=== PATIENT | female | born 1975 | race Caucasian/White ===

== ENCOUNTER 2016-10-26 21:59 | Emergency (ER) | payer OTHER ==
[2016-10-26 22:35] LABS: ABSOLUTE BASOPHILS # (AUTO) 0.1 10^3/uL (0.0-0.2); ABSOLUTE EOSINOPHILS # (AUTO) 0.3 10^3/uL (0.0-0.6); ABSOLUTE LYMPHOCYTES (AUTO) 3.1 10^3/uL (0.5-4.7); ABSOLUTE MONOCYTES (AUTO) 0.8 10^3/uL (0.1-1.4); ABSOLUTE NEUT (AUTO) 5.6 10^3/uL (1.7-8.2); BASOPHILS % (AUTO) 0.8 % (0-2); EOSINOPHILS % (AUTO) 2.6 % (0-6); HEMATOCRIT 42.3 % (36.0-47.0); HEMOGLOBIN 14.2 g/dL (12.0-15.5); HGB HCT DIFFERENCE 0.3; LYMPHOCYTES % (AUTO) 31.5 % (13-45); MEAN CORPUSCULAR HEMOGLOBIN 29.8 pg (27.0-33.4); MEAN CORPUSCULAR HGB CONC 33.6 g/dL (32.0-36.0); MEAN CORPUSCULAR VOLUME 89 fl (80-97); MONOCYTES % (AUTO) 7.8 % (3-13); RED BLOOD COUNT 4.77 10^6/uL (3.72-5.28); RED CELL DISTRIBUTION WIDTH 14.1 % (11.5-14.0); SEGMENTED NEUTROPHILS % (AUTO) 57.3 % (42-78); WHITE BLOOD COUNT 9.8 10^3/uL (4.0-10.5)
[2016-10-26 22:38] LABS: PROTHROMBIN TIME 12.4 SEC (11.4-15.4)
[2016-10-26 22:39] LABS: PARTIAL THROMBOPLASTIN TIME 26.5 SEC (23.5-35.8)
--- NOTE | 2016-10-26 22:39 | ER Document Report ---
ED General - General Chief Complaint: Headache Stated Complaint: POSSIBLE STROKE Notes: Patient is a 41-year-old female who presents with complaint of onset of headache and tingling sensations in her face and a little bit of slurred speech. She said she said the symptoms in the past. The worst episode of the system she ever had was in 2014. This was up in [place]. At that time they initially suspected a stroke. They did an MRI of her head. She did bring her MRI CD with her. The MRI was read as having multiple regions of T2 hyperdensity and signal abnormality in 2 left-sided lesions. Differential diagnosis at that time on the radiologist read was acute infarcts within left parietal and left temporal lobes with possible remote infarct in the right paraventricular white matter. Differential diagnosis also include possibility of acute demyelinating foci and demyelinating disease. Patient says her symptoms have now resolved exception of still having slight headache. She says she gets headaches frequently this is not atypical for her. She scissors speech is back to normal. Patient says she frequently gets episodes of random numbness and tingling. She sometimes also has episodes of recurrent headaches and slightly slurred speech. Patient says that in [place] seem to be related to living in a house with mold. She recently start renting a house down here which has mold in her symptoms have been occurring much more frequent. She was seen 5 different doctors in [place]. For them told her that she had early signs of MS. One told her that he thought it was a stroke. Patient herself thinks it is probably MS. She's not followed up or had repeat MRIs. She does have a primary care doctor in the area. She's not seen neurologist since she left [place]. She denies any focal weakness or numbness today in any of her extremity. She denies any difficulty walking or ambulating. TRAVEL OUTSIDE OF THE [place] IN LAST 30 DAYS: No - Related Data Allergies/Adverse Reactions: codeine Allergy (Verified 07/11/16 21:11) Penicillins Allergy (Verified 07/11/16 21:11) Past Medical History - Social History Smoking Status: Current Every Day Smoker Frequency of alcohol use: None Drug Abuse: None Family History: Other - Mother age 50 unknown cause Patient has suicidal ideation: No Patient has homicidal ideation: No Renal/ Medical History: Denies: Hx Peritoneal Dialysis Past Surgical History: Reports: Hx Section, Hx Tonsillectomy, Hx Tubal Ligation Review of Systems - Review of Systems Notes: My Normal Review Basic REVIEW OF SYSTEMS: CONSTITUTIONAL : Denies fever, chills, or sweats. Denies recent illness. EENT: Denies eye, ear, throat, or mouth pain or symptoms. Denies nasal or sinus congestion. CARDIOVASCULAR: Denies chest pain. RESPIRATORY: Denies cough, cold, or chest congestion. Denies shortness of breath, difficulty breathing, or wheezing. GASTROINTESTINAL: Denies abdominal pain. Denies nausea, vomiting, or diarrhea. Denies constipation. Last BM: MUSCULOSKELETAL: Denies neck or back pain or joint pain or swelling. SKIN: Denies rash or skin lesions. NEUROLOGICAL: Denies altered mental status or loss of consciousness. Has a headache. Denies weakness or paralysis or loss of use of either side. Had some difficulty speaking. Denies sensory or motor loss. ALL OTHER SYSTEMS REVIEWED AND NEGATIVE. Physical Exam - Vital signs Vitals: Temp Pulse BP Pulse Ox 98.2 F 80 137/78 H 97 10/26/16 22:07 10/26/16 22:07 10/26/16 22:07 10/26/16 22:07 - Notes Notes: General Appearance: Well nourished, alert, cooperative, no acute distress, no obvious discomfort. Well-appearing. Vitals: reviewed, See vital signs table. Head: no swelling or tenderness to the head Eyes: PERRL, EOMI, Conjuctiva clear Mouth: No decreasd moisture Neck: Supple, no neck tenderness, Lungs: No wheezing, No rales, No rhonci, No accessory muscle use, good air exchange bilaterally. Heart: Normal rate, Regular rythm, No murmur, no rub Extremities: strength 5/5 in all extremities, good pulses in all extremities, no swelling or tenderness in the extremities, no edema. Skin: warm, dry, appropriate color, no rash Neuro: speech clear, oriented x 3, normal affect, responds appropriately to questions. Cranial nerves II through XII are intact. Distal sensation intact. Patient moves all extremities without difficulty. Normal gait. Normal Romberg. Her current NIH stroke scale is 0. Course - Re-evaluation Re-evalutation: 10/26/16 22:37 I went to go to immediately evaluate the patient because I was told she has strokelike symptoms and the patient has a previous history of stroke. I went to the patient's room and she was in the bathroom. I will see the patient as soon as she gets back to room. - Vital Signs Vital signs: Temp Pulse Resp BP Pulse Ox 98.2 F 80 18 135/77 H 100 10/26/16 22:07 10/26/16 22:07 10/26/16 23:01 10/26/16 23:01 10/26/16 23:01 - Laboratory Result Diagrams: 10/26/16 22:25 10/26/16 22:25 Laboratory results interpreted by me: 10/26/16 10/26/16 22:25 22:25 RDW 14.1 H Glucose 112 H - EKG Interpretation by Me Additional EKG results interpreted by me: 10/26/16 23:16 EKG is reviewed and I will are provided by me. EKG shows a sinus rhythm with rate of [address] segment elevation or depression. No ischemic T wave inversions. [place] interval, QRS duration, QTC intervals are within normal range. No old EKG available for comparison. - Transfer of Care Notes: 10/26/16 23:22 I spoke to the patient length about her symptoms. I informed her that I cannot conclude whether or not this is MS or possible recurrent strokes without admitting her and obtaining MRI. I strongly encourage her to stay in hospital. Patient says she cannot stay in hospital because she has to go home and care for children. I informed her that currently she has no symptoms and looks well and I do not suspect a life-threatening illness; however, I cannot fully guarantee her that she does not have an impending life-threatening episode in the near future without actually knowing exactly what is going on. Patient is understanding of this and still refuses to stay. Patient is awake and alert. She has no neurologic deficits. Her NIH stroke scale is 0. She wishes to be discharged home. I will discharge her home as she requests. She has no focal incision opacity at this time and I cannot hold her against her will. Patient says she'll follow-up with her primary care doctor tomorrow and arrange for an outpatient MRI to compare to the MRI that she had 2015. This should show whether or not she is having increasing lesions in her brain. I strongly encouraged her follow up with a neurologist. I gave her the phone numbers to the 2 local neurologist. Also gave her the number to the neurology clinic in [place]. Patient informed that she is more and welcome to return to ER anytime as we are happy to care for to take care of her to try to continue her workup. Patient demonstrates complete understanding of this. Patient will be discharged home as she requests. Dictation of this chart was performed using voice recognition software; therefore, there may be some unintended grammatical errors. Discharge - Discharge Clinical Impression: Headache Qualifiers: Headache type: unspecified Headache chronicity pattern: episodic headache Intractability: not intractable Qualified Code(s): R51 - Headache Condition: Stable Disposition: HOME, SELF-CARE Additional Instructions: Please consider finding a different home or living situation where there is not mold in the house being that you've noticed that living in moldy conditions exacerbate your symptoms and make them worse. As discussed with you, the exact cause of your symptoms today are not 100% clear. You do have the previous MRI which shows that you have a potential previous stroke versus multiple sclerosis. As discussed with you I do recommend staying in the hospital so that we can continue to monitor you to make sure that your symptoms do not come back or worsen and to also get a repeat MRI. At this time I do not suspect that you have anything immediately life-threatening; however, I cannot be 100% sure without admitting you or performing an MRI as discussed with you. I do understand with your family situation that you're unable to stay tonight. Please feel free to return to the ER any time as we are happy to take care of you any time and continue workup. Please follow very closely with your primary care doctor to arrange for a MRI of your brain. Please follow-up with a neurologist for reevaluation and further workup for recurrence of your symptoms and for further workup of possible multiple sclerosis. I've included the name and numbers of 2 local neurologist on your discharge instructions here. The number to the neurology clinic in [place] is [phone]. This is [facility] neurology. Referrals: CHAU ROSARIO MD [EMERITUS] - Follow up in 3-5 days TARA VEGA MD [ACTIVE STAFF] - Follow up in 3-5 days
[2016-10-26 22:55] LABS: ALANINE AMINOTRANSFERASE 21 U/L (9-52); ALBUMIN 4.1 g/dL (3.5-5.0); ALKALINE PHOSPHATASE 64 U/L (38-126); ANION GAP 9 (5-19); ASPARTATE AMINO TRANSFERASE 16 U/L (14-36); BILIRUBIN,TOTAL 0.7 mg/dL (0.2-1.3); BLOOD UREA NITROGEN 14 mg/dL (7-20); CARBON DIOXIDE 26 mmol/L (22-30); CHLORIDE 106 mmol/L (98-107); CREATINE KINASE 67 U/L (30-135); CREATININE RESULT 0.69 mg/dL (0.52-1.25); GLUCOSE 112 mg/dL (75-110); POTASSIUM 4.1 mmol/L (3.6-5.0); SODIUM 140.7 mmol/L (137-145); TOTAL PROTEIN 6.7 g/dL (6.3-8.2)
[2016-10-26] MEDS ORDERED: KETOROLAC TROMETHAMINE INJ/PF 30 MG/1 ML SDV IM ONE (23:04)
[2016-10-26 23:07] LABS: CREATINE KINASE MB < 0.22 ng/mL (<4.55); TROPONIN I < 0.012 ng/mL
[2016-10-26 23:13] VITALS: BP 135/77
--- NOTE | 2016-10-27 07:56 | EKG REPORT ---
SEVERITY:- OTHERWISE NORMAL ECG - SINUS RHYTHM BORDERLINE RIGHT AXIS DEVIATION : Confirmed by: Iris Fair MD 27-Oct-2016 07:55:32
== END 2016-10-26 23:35 | disposition home or self-care (01) ==
LOC: ER 21:59
DX: R51 Headache (principal); R20.2 Paresthesia of skin; R47.81 Slurred speech; F17.200 Nicotine dependence, unspecified, uncomplicated; Z88.0 Allergy status to penicillin; Z88.6 Allergy status to analgesic agent
CPT/HCPCS: 93005; 99284; 96372; 36415; 82553; 82550; 84703; 85025; 85610; 85730; 80053; 84484; 71010; 70450; 93010; J1885

== ENCOUNTER 2016-10-31 15:25 | Emergency (ER) | payer OTHER ==
--- NOTE | 2016-10-31 15:31 | ER Document Report ---
ED Medical Screen (RME) - General Stated Complaint: STOMACH PAIN Notes: patient is a 41 year old female p/w left rib pain, denies any trauma, injury. worse with inspiration. denies any other associated symptoms LMP: september I have greeted and performed a rapid initial assessment of this patient. A comprehensive ED assessment and evaluation of the patient, analysis of test results and completion of the medical decision making process will be conducted by additional ED providers. TRAVEL OUTSIDE OF THE [place] IN LAST 30 DAYS: No - Related Data Allergies/Adverse Reactions: codeine Allergy (Verified 10/31/16 15:28) Penicillins Allergy (Verified 10/31/16 15:28) Past Medical History Renal/ Medical History: Denies: Hx Peritoneal Dialysis Past Surgical History: Reports: Hx Section, Hx Tonsillectomy, Hx Tubal Ligation - Immunizations Hx Diphtheria, Pertussis, Tetanus Vaccination: Yes
--- NOTE | 2016-10-31 16:31 | ER Document Report ---
ED General - General Chief Complaint: Abdominal Pain Stated Complaint: STOMACH PAIN Time seen by provider: 16:28 Mode of Arrival: Ambulatory Information source: Patient Notes: This is a 41-year-old female with a history of MS, irritable bowel who presents to the emergency room with left-sided abdominal pain. Patient denies fever. TRAVEL OUTSIDE OF THE [place] IN LAST 30 DAYS: No - HPI Onset: Other - Past 2 days Onset/Duration: Gradual Quality of pain: Achy Severity: Mild Pain Level: 1 Associated symptoms: denies: Chills, Nonproductive cough, Productive cough, Fever, Nausea, Vomiting, Shortness of breath Exacerbated by: Denies Relieved by: Denies Similar symptoms previously: No Recently seen / treated by doctor: No - Related Data Allergies/Adverse Reactions: codeine Allergy (Verified 10/31/16 15:28) Penicillins Allergy (Verified 10/31/16 15:28) Past Medical History - General Information source: Patient - Social History Smoking Status: Current Every Day Smoker Cigarette use (# per day): Yes Chew tobacco use (# tins/day): No Frequency of alcohol use: None Drug Abuse: None Lives with: Family Family History: Reviewed & Not Pertinent, Other - Mother age 50 unknown cause Patient has suicidal ideation: No Patient has homicidal ideation: No - Past Medical History Cardiac Medical History: Reports: None Pulmonary Medical History: Reports: None EENT Medical History: Reports: None Neurological Medical History: Reports: None Endocrine Medical History: Reports: None Renal/ Medical History: Reports: None. Denies: Hx Peritoneal Dialysis Malignancy Medical History: Reports: None GI Medical History: Reports: Other - Irritable bowel Musculoskeltal Medical History: Reports None Skin Medical History: Reports None Psychiatric Medical History: Reports: None Traumatic Medical History: Reports: None Infectious Medical History: Reports: None Past Surgical History: Reports: Hx Section, Hx Tonsillectomy, Hx Tubal Ligation - Immunizations Hx Diphtheria, Pertussis, Tetanus Vaccination: Yes Review of Systems - Review of Systems Constitutional: No symptoms reported EENT: No symptoms reported Cardiovascular: No symptoms reported Respiratory: No symptoms reported Gastrointestinal: See HPI Genitourinary: No symptoms reported Female Genitourinary: No symptoms reported Musculoskeletal: No symptoms reported Skin: No symptoms reported Hematologic/Lymphatic: No symptoms reported Neurological/Psychological: No symptoms reported Physical Exam - Vital signs Vitals: Temp Pulse Resp BP Pulse Ox 98.2 F 82 18 122/67 97 10/31/16 15:29 10/31/16 15:29 10/31/16 15:29 10/31/16 15:29 10/31/16 15:29 Notes: Physical exam: GENERAL: 41-year-old female, alert and oriented 3, no acute distress HEAD: Atraumatic, normocephalic. EYES: Pupils equal round and reactive to light, extraocular movements intact, sclera anicteric, conjunctiva are normal. ENT: TMs normal, nares patent, oropharynx clear without exudates. Moist mucous membranes. NECK: Normal range of motion, supple without lymphadenopathy or JVD. LUNGS: Breath sounds clear to auscultation bilaterally and equal. No wheezes rales or rhonchi. HEART: Regular rate and rhythm without murmurs, rubs or gallops. ABDOMEN: Soft, normoactive bowel sounds. No tenderness to palpation. No guarding, no rebound. No masses appreciated. EXTREMITIES: Normal range of motion, no pitting or edema. No clubbing or cyanosis. NEUROLOGICAL: Cranial nerves II through XII grossly intact. Normal speech, normal gait. PSYCH: Normal mood, normal affect. SKIN: Warm, Dry, normal turgor, no rashes or lesions noted. Course - Vital Signs Vital signs: Temp Pulse Resp BP Pulse Ox 98.2 F 82 18 122/67 97 10/31/16 15:29 10/31/16 15:29 10/31/16 15:29 10/31/16 15:29 10/31/16 15:29 - Laboratory Result Diagrams: 10/31/16 16:55 10/31/16 16:55 Laboratory results interpreted by me: 10/31/16 16:55 RDW 14.3 H - Diagnostic Test Radiology reviewed: Image reviewed, Reports reviewed - CT of the abdomen shows no acute intra-abdominal process Discharge - Discharge Clinical Impression: abdominal pain Condition: Stable Disposition: HOME, SELF-CARE Instructions: Abdominal Pain ([facility]) Additional Instructions: Please note: Many disease processes evolve over time and the ER visit offers only a brief assessment. This is why it is important that you: 1. Follow-up with your doctor in the next 48hours to be reevaluated. 2. If unable to see a physician in the next 48 hours, return to the ER for reevaluation. 3. Return to the ER at once if your symptoms worsen or you are unable to tolerate fluids, if the pain becomes localized to the right lower side of the abdomen, or any concerns you are getting worse. When you call your physician's office, tell them you were evaluated in the ER for abdominal pain and the ER physician recommended you seen in the office in the next 24 hours for reevaluation. Bring a copy of today's labs/urine analysis /imaging reports with you when you see your physician. If you are unable to get an appointment with your doctor in this time frame, return to the ER for evaluation. In the meantime, rest, drink plenty of fluids and advance her diet as tolerated. Take the omeprazole as prescribed. Referrals: GABBY GUY PA-C [Primary Care Provider] - 11/02/16
[2016-10-31] MEDS ORDERED: NORMAL SALINE 1000 ML 1,000 ML IV PRN (16:34)
[2016-10-31 17:06] LABS: ABSOLUTE BASOPHILS # (AUTO) 0.1 10^3/uL (0.0-0.2); ABSOLUTE EOSINOPHILS # (AUTO) 0.2 10^3/uL (0.0-0.6); ABSOLUTE LYMPHOCYTES (AUTO) 2.3 10^3/uL (0.5-4.7); ABSOLUTE MONOCYTES (AUTO) 0.7 10^3/uL (0.1-1.4); ABSOLUTE NEUT (AUTO) 5.7 10^3/uL (1.7-8.2); BASOPHILS % (AUTO) 0.9 % (0-2); EOSINOPHILS % (AUTO) 2.1 % (0-6); HEMATOCRIT 42.3 % (36.0-47.0); HEMOGLOBIN 14.1 g/dL (12.0-15.5); LYMPHOCYTES % (AUTO) 25.2 % (13-45); MEAN CORPUSCULAR HEMOGLOBIN 29.6 pg (27.0-33.4); MEAN CORPUSCULAR HGB CONC 33.4 g/dL (32.0-36.0); MEAN CORPUSCULAR VOLUME 88 fl (80-97); MONOCYTES % (AUTO) 8.1 % (3-13); RED BLOOD COUNT 4.78 10^6/uL (3.72-5.28); RED CELL DISTRIBUTION WIDTH 14.3 % (11.5-14.0); SEGMENTED NEUTROPHILS % (AUTO) 63.7 % (42-78)
[2016-10-31 17:26] LABS: ALANINE AMINOTRANSFERASE 19 U/L (9-52); ALKALINE PHOSPHATASE 62 U/L (38-126); ANION GAP 11 (5-19); ASPARTATE AMINO TRANSFERASE 20 U/L (14-36); BLOOD UREA NITROGEN 11 mg/dL (7-20); CALCIUM 9.6 mg/dL (8.4-10.2); CARBON DIOXIDE 25 mmol/L (22-30); CHLORIDE 107 mmol/L (98-107); CREATININE RESULT 0.71 mg/dL (0.52-1.25); GLUCOSE 88 mg/dL (75-110); POTASSIUM 4.1 mmol/L (3.6-5.0); TOTAL PROTEIN 6.9 g/dL (6.3-8.2)
[2016-11-01 01:57] VITALS: BP 123/63
== END 2016-10-31 19:45 | disposition home or self-care (01) ==
LOC: ER 15:25
DX: R10.9 Unspecified abdominal pain (principal); F17.210 Nicotine dependence, cigarettes, uncomplicated; Z88.6 Allergy status to analgesic agent; Z88.0 Allergy status to penicillin; Z98.51 Tubal ligation status
CPT/HCPCS: 36415; 74176; 80053; 83690; 84702; 85025; 99284

== ENCOUNTER → 2016-12-28 | Outpatient (CLI) | payer OTHER ==
--- NOTE | 2017-01-14 11:21 | WOMENS IMAGING REPORT ---
EXAM DESCRIPTION: 3D SCREENING MAMMO BILAT COMPLETED DATE/TIME: 12/28/2016 11:47 am REASON FOR STUDY: ROUTINE BILATERAL SCREENING;Z12.31 Z12.31 ENCNTR SCREEN MAMMOGRAM FOR MALIGNANT N EOPLASM OF [place]AN DIEGO COMPARISON: 2013, 2015 outside facility TECHNIQUE: Standard craniocaudal and mediolateral oblique views of each breast recorded using digita l acquisition and breast tomosynthesis. LIMITATIONS: None. FINDINGS: No masses, calcifications or architectural distortion. No areas of suspicion. Read with the assistance of CAD. .[facility] - R2 Cenova Version 1.3 .[facility] Imaging - R2 Cenova Version 1.3 .[facility] Imaging - R2 Cenova Version 2.4 .[facility] [place] - R2 Cenova Version 2.4 .[facility] - R2 Social Science Professor Version 9.2 IMPRESSION: NORMAL MAMMOGRAM. BIRADS 1. BREAST DENSITY: c. The breasts are heterogeneously dense, which may obscure small masses. BIRAD: 1 NEGATIVE RECOMMENDATION: ROUTINE SCREENING COMMENT: The patient has been notified of the results by letter per MQSA requirements. Additional no tification policies are in place for contacting patient with suspicious or incomplete findings. Quality ID #[id number]: The [employer] recommends an annual screening mammogram for women aged 40 years or over. This facility utilizes a reminder system to ensure that all patients receive reminder letters, and/or direct phone calls for appointments. This includes reminders for routine scr eening mammograms, diagnostic mammograms, or other Breast Imaging Interventions when appropriate. Th is patient will be placed in the appropriate reminder system. The [employer] (ACR) has developed recommendations for screening MRI of the breast s in certain patient populations, to be used in conjunction with mammography. Breast MRI surveillanc e may be appropriate for women with more than 20% lifetime risk of developing breast cancer as deter mined by genetic testing, significant family history of the disease, or history of mantle radiation f or Hodgkins Disease. ACR Practice Guidelines 2008. DBT Technology DBT is a type of tomographic mammography. With conventional mammography, overlapping breast tissue ma y make lesions difficult to detect, even with good compression. DBT uses an x-ray tube that rotates a round the breast, taking images at different angles. These images are then combined to create thin sl ices of the breast that the radiologist can view as a 3D reconstruction. The [employer] unit can perform full-field digital mammograms (2D imaging); or DBT (3D imaging); or both, in a combination mode that quickly performs both the mammogram and the tomosynthesis scan while the breast is still compressed. PQRS 6045F: Fluoroscopic imaging is not utilized for breast tomosynthesis. TECHNICAL DOCUMENTATION: FINDING NUMBER: (1) ASSESSMENT: (1) JOB ID: [id number] [employer]- All Rights Reserved
== END ==
LOC: WI 10:57
PROVIDERS: ATTEND Family Medicine
DX: Z12.31 Encounter for screening mammogram for malignant neoplasm of breast (principal); Z80.3 Family history of malignant neoplasm of breast
CPT/HCPCS: 77063; G0202; 77067

== ENCOUNTER 2017-04-21 17:24 | Emergency (ER) | payer OTHER ==
--- NOTE | 2017-04-21 19:10 | RADIOLOGY REPORT (SQ) ---
EXAM DESCRIPTION: CHEST PA/LAT COMPLETED DATE/TIME: 04/21/2017 7:01 pm REASON FOR STUDY: chest pain to right lateral chest worse with cough COMPARISON: 10/26/2016. EXAM PARAMETERS: NUMBER OF VIEWS: two views TECHNIQUE: Digital Frontal and Lateral radiographic views of the chest acquired. RADIATION DOSE: NA LIMITATIONS: none FINDINGS: LUNGS AND PLEURA: No opacities, masses or pneumothorax. No pleural effusion. MEDIASTINUM AND HILAR STRUCTURES: No masses or contour abnormalities. HEART AND VASCULAR STRUCTURES: Heart normal size. No evidence for failure. BONES: No acute findings. HARDWARE: None in the chest. OTHER: No other significant finding. IMPRESSION: NO SIGNIFICANT RADIOGRAPHIC FINDING IN THE CHEST. TECHNICAL DOCUMENTATION: JOB ID: [id number] [employer]- All Rights Reserved
--- NOTE | 2017-04-21 19:19 | ER Document Report ---
ED General - General Chief Complaint: Rib Pain Stated Complaint: RIB AND LUNG PAIN Time Seen by Provider: 04/21/17 18:24 Mode of Arrival: Ambulatory Information source: Patient Notes: 42-year-old female presents to ED for complaint of pain in the right lateral chest. She states she pulled her back yesterday causing pain to the left lateral chest. She states she has never had pain like this before. States she took some Advil with no relief. Patient states the pain is much worse with deep breath or cough. TRAVEL OUTSIDE OF THE [place] IN LAST 30 DAYS: No - HPI Onset: Yesterday Onset/Duration: Intermittent Quality of pain: Achy, Sharp Severity: Moderate Pain Level: 4 Associated symptoms: Other - Right lateral chest wall pain Exacerbated by: Movement, Coughing, Deep breathing Relieved by: Denies Similar symptoms previously: No Recently seen / treated by doctor: No - Related Data Allergies/Adverse Reactions: codeine Allergy (Verified 04/21/17 18:03) Penicillins Allergy (Verified 04/21/17 18:03) Past Medical History - General Information source: Patient - Social History Smoking Status: Current Every Day Smoker Cigarette use (# per day): Yes - Pack per day Chew tobacco use (# tins/day): No Smoking Education Provided: Yes Frequency of alcohol use: None Drug Abuse: None Lives with: Family Family History: Arthritis, COPD, DM, Hyperlipidemia, Hypertension, Malignancy, Thyroid Disfunction, Other Patient has suicidal ideation: No Patient has homicidal ideation: No - Past Medical History Cardiac Medical History: Reports: None Pulmonary Medical History: Reports: None EENT Medical History: Reports: None Neurological Medical History: Reports: Hx Cerebrovascular Accident, Other - MTHFR according to patient this is a gene deformity. Endocrine Medical History: Reports: None Renal/ Medical History: Reports: None GI Medical History: Reports: Hx Irritable Bowel Musculoskeltal Medical History: Reports Hx Arthritis, Reports Hx Musculoskeletal Deformity Skin Medical History: Reports None Psychiatric Medical History: Reports: None Traumatic Medical History: Reports: None Infectious Medical History: Reports: None Past Surgical History: Reports: Hx Section, Hx Tonsillectomy, Hx Tubal Ligation - Immunizations Hx Diphtheria, Pertussis, Tetanus Vaccination: Yes Review of Systems - Review of Systems Constitutional: No symptoms reported EENT: No symptoms reported Cardiovascular: No symptoms reported Respiratory: Other - Right lateral chest wall that causes pain when she takes a deep breath or coughs Gastrointestinal: No symptoms reported Genitourinary: No symptoms reported Female Genitourinary: No symptoms reported Musculoskeletal: Muscle pain - Right lateral chest wall, Muscle stiffness Skin: No symptoms reported Hematologic/Lymphatic: No symptoms reported Neurological/Psychological: No symptoms reported Physical Exam - Vital signs Vitals: Temp Pulse BP Pulse Ox 98.7 F 78 120/59 L 96 04/21/17 18:02 04/21/17 18:02 04/21/17 18:02 04/21/17 18:02 Interpretation: Normal - General General appearance: Appears well, Alert - HEENT Head: Normocephalic, Atraumatic Eyes: Normal Pupils: PERRL - Respiratory Respiratory status: No respiratory distress Chest status: Tender, Pain with cough, Pain with deep breathing Breath sounds: Normal Chest palpation: Normal - Cardiovascular Rhythm: Regular Heart sounds: Normal auscultation Murmur: No - Abdominal Inspection: Normal Distension: No distension Bowel sounds: Normal Tenderness: Nontender Organomegaly: No organomegaly - Back Back: Normal, Nontender - Extremities General upper extremity: Normal inspection, Nontender, Normal color, Normal ROM , Normal temperature General lower extremity: Normal inspection, Nontender, Normal color, Normal ROM , Normal temperature, Normal weight bearing. No: Oyla's sign - Neurological Neuro grossly intact: Yes Cognition: Normal Orientation: AAOx4 [place]oco Coma Scale Eye Opening: Spontaneous [place] Coma Scale Verbal: Oriented [place] Coma Scale Motor: Obeys Commands [place] Coma Scale Total: 15 Speech: Normal Motor strength normal: LUE, RUE, LLE, RLE Sensory: Normal - Psychological Associated symptoms: Normal affect, Normal mood - Skin Skin Temperature: Warm Skin Moisture: Dry Skin Color: Normal Course - Re-evaluation Re-evalutation: 04/21/17 21:35 Discussed x-ray with patient and written report given to patient to follow-up with her primary doctor. Patient encouraged to use ibuprofen, warm packs, and ice packs for her pain. - Vital Signs Vital signs: Temp Pulse Resp BP Pulse Ox 98.5 F 80 16 127/77 H 97 04/21/17 19:52 04/21/17 19:52 04/21/17 19:52 04/21/17 19:52 04/21/17 19:52 - Diagnostic Test Radiology reviewed: Image reviewed, Reports reviewed Discharge - Discharge Clinical Impression: Right-sided chest wall pain Condition: Stable Disposition: HOME, SELF-CARE Instructions: Use of [id number] Ibuprofen ([facility]) Additional Instructions: CHEST WALL PAIN: Your chest pain may be coming from the chest wall. This is often caused by straining the muscles or joints in the chest during physical activity, direct trauma, coughing, or vigorous vomiting. Persons with arthritis are especially prone to this type of pain, due to inflammation of the cartilage joints near the breast bone. Occasionally, no cause can be found. Rest from strenuous physical activity. This kind of chest pain is usually made worse by movement of the chest. Depending on the symptoms, we may prescribe medicine for pain, muscle relaxation, and antiinflammatory effects. If the pain is new, and seems to be due to muscle strain, cold packs can help. Otherwise, apply gentle warmth to the painful area for 15 minutes every hour or two. You should call contact the doctor immediately if things change. Further evaluation is needed if you develop a fever or cough, if the nature of the pain changes, or if you become short of breath. USE OF TYLENOL (ACETAMINOPHEN): Acetaminophen may be taken for pain relief or fever control. It's much safer than aspirin, offering a wider range of "safe" dosages. It is safe during . Some brand names are Tylenol, Panadol, Datril, Anacin 3, Tempra, and Liquiprin. Acetaminophen can be repeated every four hours. The following are maximum recommended dosages: WEIGHT Dose Drops Elixir Chewable( 80mg) (LBS.) drprs=droppers tsp=teaspoon 6 40 mg 0.4 ml (1/2) 6-11 80 mg 0.8 ml (full) tsp 1 tab 12-16 120 mg 1 1/2 drprs 3/4 tsp 1 1/2 tabs 17-23 160 mg 2 drprs 1 tsp 2 tabs 24-30 240 mg 3 drprs 1 1/2 tsp 3 tabs 30-35 320 mg 2 tsp 4 tabs 36-41 360 mg 2 1/4 tsp 4 1/2 tabs 42-47 400 mg 2 1/2 tsp 5 tabs 48-53 480 mg 3 tsp 6 tabs 54-59 520 mg 3 1/4 tsp 6 1/2 tabs 60-64 560 mg 3 1/2 tsp 7 tabs 65-70 600 mg 3 3/4 tsp 7 1/2 tabs 71-76 640 mg 4 tsp 8 tabs 77-82 720 mg 4 1/2 tsp 9 tabs 83-88 800 mg 5 tsp 10 tabs >89 pounds or adults 650 mg to 900 mg Acetaminophen can be repeated every four hours. Maximum dose not to exceed 4000 mg a day. These maximum recommended dosages are slightly higher than the dosages written on the product container, but these dosages are very safe and below the toxic dosage for acetaminophen. ICE PACKS: Apply ice packs frequently against the painful area. Many different schedules are recommended, such as "20 minutes on, 20 minutes off" or "one hour ice, two hours rest." If you need to work, you may need to go longer between ice treatments. You should plan to have the area ice packed AT LEAST one fourth of the time. The ice should be applied over the wrap, tape, or splint, or over a layer of cloth -- not directly against the skin. Some ice bags have a built-in cloth and can be put directly on the skin. WARM PACKS: After approximately two days, apply gentle heat (such as a heating pad or hot water bottle) for about 20 to 30 minutes about every two hours -- at least four times daily. Warmth and elevation will help you make a more rapid recovery , and will ease the pain considerably. Do not use HOT heat, and never apply heat for longer than 30 minutes. The continuous heat can invisibly damage skin and muscles -- even when no burn is seen on the surface. Damaged muscles can make you MORE sore. FOLLOW-UP CARE: If you have been referred to a physician for follow-up care, call the physician s office for an appointment as you were instructed or within the next two days. If you experience worsening or a significant change in your symptoms, notify the physician immediately or return to the Emergency Department at any time for re-evaluation. Forms: Elevated Blood Pressure, Smoking Cessation Education Referrals: TESFAYE KINNEY PA-C [Primary Care Provider] - Follow up as needed
[2017-04-21 19:55] VITALS: BP 127/77
== END 2017-04-21 19:55 | disposition home or self-care (01) ==
LOC: ER 17:24
DX: R07.89 Other chest pain (principal); R07.81 Pleurodynia; F17.210 Nicotine dependence, cigarettes, uncomplicated
CPT/HCPCS: 71020; 99283